=== PATIENT | female | born 1930 | race Caucasian/White ===

== ENCOUNTER → 2016-08-18 | Outpatient (CLI) | payer OTHER ==
[2016-08-18 18:15] LABS: BLOOD UREA NITROGEN 16 mg/dl (7-18); BUN/CREATININE RATIO 20.5 (10-20); CALCIUM 9.1 mg/dl (8.5-10.1); CARBON DIOXIDE 26 mmol/L (21-32); CHLORIDE 102 mmol/L (98-107); GLUCOSE 115 mg/dl (70-99); POTASSIUM 3.9 mmol/L (3.5-5.1); SODIUM 139 mmol/L (136-145)
[2016-08-19 06:09] LABS: ESTIMATED AVERAGE GLUCOSE 154 mg/dl; HA1C FLAG Normal (Normal)
== END | disposition home or self-care (01) ==
LOC: C.LABMFLN 09:09
PROVIDERS: ATTEND Family Medicine
DX: E11.9 Type 2 diabetes mellitus without complications (principal)

== ENCOUNTER → 2017-02-27 | Outpatient (CLI) | payer OTHER, MEDICARE ==
[2017-02-27 13:41] LABS: BASO % 0.7 %; BASO ABS # 0.04 K/uL (0-0.2); COMPLETE YES; EOS % 2.2 %; HEMATOCRIT 42.4 % (37-47); IG% 0.4 %; LYMPH % 31.6 %; LYMPH ABS # 1.71 K/uL (1.2-3.4); MEAN CELL VOLUME 90.6 fL (80-100); MEAN CORPUSCULAR HEMOGLOBIN 29.7 pg (25-34); MEAN CORPUSCULAR HGB CONC 32.8 g/dl (32-36); MEAN PLATELET VOLUME 10.3 fL (7.4-10.4); MONO % 8.3 %; NEUT % 56.8 %; PLATELET COUNT 235 K/uL (130-400); RED BLOOD COUNT 4.68 M/uL (4.2-5.4); WHITE BLOOD COUNT 5.41 K/uL (4.8-10.8)
[2017-02-27 14:08] LABS: ALT/SGPT 30 U/L (12-78); BLOOD UREA NITROGEN 13 mg/dl (7-18); BUN/CREATININE RATIO 16.3 (10-20); CALCIUM 9.2 mg/dl (8.5-10.1); CARBON DIOXIDE 28 mmol/L (21-32); CHLORIDE 105 mmol/L (98-107); CHOLESTEROL 168 mg/dl (0-200); CREATININE 0.79 mg/dl (0.60-1.20); GLUCOSE 161 mg/dl (70-99); POTASSIUM 3.9 mmol/L (3.5-5.1); SODIUM 140 mmol/L (136-145)
[2017-02-27 14:16] LABS: ESTIMATED AVERAGE GLUCOSE 174 mg/dl; HA1C FLAG Normal (Normal)
[2017-02-27 14:34] LABS: ALB/GLOB RATIO 0.9 (0.9-2); ALKALINE PHOSPHATASE 46 U/L (45-117); AST/SGOT 23 U/L (15-37); CHOLESTEROL/HDL RATIO 3.9; HDL CHOLESTEROL 43 mg/dl; LDL CHOLESTEROL CALCULATED 78 mg/dl; TRIGLYCERIDES 236 mg/dl (0-150); VERY LOW DENSITY LIPOPROT CALC 47 mg/dl
== END | disposition home or self-care (01) ==
LOC: C.LABMFLN 07:37
PROVIDERS: ATTEND Family Medicine
DX: E11.9 Type 2 diabetes mellitus without complications (principal); I10 Essential (primary) hypertension; E78.5 Hyperlipidemia, unspecified; E03.9 Hypothyroidism, unspecified

== ENCOUNTER → 2017-06-15 | Outpatient (CLI) | payer OTHER, MEDICARE ==
[2017-06-15 13:33] LABS: BLOOD UREA NITROGEN 15 mg/dl (7-18); BUN/CREATININE RATIO 18.9 (10-20); CALCIUM 9.3 mg/dl (8.5-10.1); CARBON DIOXIDE 27 mmol/L (21-32); CHLORIDE 103 mmol/L (98-107); CREATININE 0.78 mg/dl (0.60-1.20); GLUCOSE 175 mg/dl (70-99); PHOSPHORUS 3.4 mg/dl (2.5-4.9); POTASSIUM 3.8 mmol/L (3.5-5.1); SODIUM 137 mmol/L (136-145)
[2017-06-15 13:52] LABS: ESTIMATED AVERAGE GLUCOSE 151 mg/dl; HA1C FLAG Normal (Normal)
== END | disposition home or self-care (01) ==
LOC: C.LABMFLN 07:48
PROVIDERS: ATTEND Family Medicine
DX: E11.9 Type 2 diabetes mellitus without complications (principal)

== ENCOUNTER → 2017-09-30 | Outpatient (CLI) | payer OTHER, MEDICARE ==
[2017-10-01 07:04] LABS: HEMOGLOBIN A1C 6.9 % (4.5-5.6)
== END | disposition home or self-care (01) ==
LOC: C.LABMFLN 14:01
PROVIDERS: ATTEND Family Medicine
DX: E11.9 Type 2 diabetes mellitus without complications (principal)

== ENCOUNTER 2020-05-15 05:18 | Observation (INO) ==
--- NOTE | 2020-04-12 10:25 | PAT Medication Instructions ---
Medication Instructions Date of Service April 12, 2020 Home Medications Medication Instructions Recorded meclizine 25 mg tablet 25 mg PO .COMPLEX #270 tab 06/13/19 venlafaxine 75 mg tablet 75 mg PO BID #180 tab 09/02/19 metformin 500 mg tablet 500 mg PO BID #180 tab 10/20/19 meclizine 25 mg tablet 25 mg PO multivitamin 1 tab PO QAM venlafaxine 75 mg tablet 75 mg PO BID metformin 500 mg tablet 500 mg PO BID acetaminophen [Tylenol Extra Strength] 500 mg PO BID aspirin 81 mg PO QAM lactobacillus combination no.4 [Probiotic] 3,000 mmu cells PO QPM levothyroxine 50 mcg PO HS lisinopril 20 mg PO QAM metoprolol succinate 25 mg PO QAM multivitamin [Hair,Nails and Skin Vitamin] 1 tab PO BID naproxen sodium [Aleve] 220 mg PO BID pravastatin 40 mg PO HS Continue as directed meclizine 25 mg tablet 25 mg PO ASK your surgeon for instructions naproxen sodium [Aleve] 220 mg PO BID STOP taking 2 weeks before surgery multivitamin [Hair,Nails and Skin Vitamin] 1 tab PO BID DO NOT take the morning of surgery multivitamin 1 tab PO QAM metformin 500 mg tablet 500 mg PO BID lisinopril 20 mg PO QAM Take morning of surgery With a small sip of water, OTHERWISE NOTHING TO EAT OR DRINK AFTER MIDNIGHT: venlafaxine 75 mg tablet 75 mg PO BID acetaminophen [Tylenol Extra Strength] 500 mg PO BID (okay to take up to 4 hours prior to surgery if needed) aspirin 81 mg PO QAM metoprolol succinate 25 mg PO QAM Take evening before surgery venlafaxine 75 mg tablet 75 mg PO BID metformin 500 mg tablet 500 mg PO BID acetaminophen [Tylenol Extra Strength] 500 mg PO BID lactobacillus combination no.4 [Probiotic] 3,000 mmu cells PO QPM levothyroxine 50 mcg PO HS pravastatin 40 mg PO HS Other Notes If you have any questions please call us at [phone] or [phone] or [phone] or [phone]
--- NOTE | 2020-04-16 10:58 | Anesthesiology Consultation ---
Date of Service April 16, 2020 Assessment & Plan (1) Encounter for pre-operative examination: COVID Status: As of 04/16 assessment, patient denies travel to endemic area, known exposure/sick contacts, or symptoms of COVID19. Patient instructed that they and their household members must follow strict social distancing guidelines, wear a mask in public and avoid travel for 14 days prior to surgery. Preoperative COVID19 testing to be completed prior to surgery per surgeon's a rrangements. Patient made aware to self-isolate as much as possible between COVID testing and surgery. Chart Review Chart Review: Acceptable Risk for Surgery (pending surgeon-ordered PCP clearance ([facility])) and Patient seen in Pre Admission Testing Teaching & Discussion Instructed NPO after midnight before surgery, except medications with 15 cc of water. Medication instructions provided according to the PAT guidelines. History Surgery Operation Date: 05/15/20 07:15 Proposed Procedures p Left Anterior Total Hip Arthroplasty - Hill Waller, Height/Weight Height: 5 ft 5 in Weight: 76.5 kg Allergies Allergy/AdvReac Type Severity Reaction Status Date / Time atorvastatin AdvReac Unknown MUSCLE Verified 04/05/20 12:34 ACHES morphine AdvReac Unknown Nausea Verified 04/05/20 12:12 Medications Home Medications Medication Instructions Recorded Confirmed Last Taken meclizine 25 mg tablet 25 mg PO .COMPLEX #270 tab 06/13/19 04/05/20 Unknown multivitamin 1 tab PO QAM 08/10/19 04/05/20 Unknown venlafaxine 75 mg tablet 75 mg PO BID #180 tab 09/02/19 04/05/20 Unknown metformin 500 mg tablet 500 mg PO BID #180 tab 10/20/19 04/05/20 Unknown acetaminophen [Tylenol Extra 500 mg PO BID 04/05/20 04/05/20 Unknown Strength] aspirin 81 mg PO QAM 04/05/20 04/05/20 Unknown lactobacillus combination no.4 3,000 mmu cells PO QPM 04/05/20 04/05/20 Unknown [Probiotic] levothyroxine 50 mcg PO HS 04/05/20 04/05/20 Unknown lisinopril 20 mg PO QAM 04/05/20 04/05/20 Unknown metoprolol succinate 25 mg PO QAM 04/05/20 04/05/20 Unknown multivitamin [Hair,Nails and Skin 1 tab PO BID 04/05/20 04/05/20 Unknown Vitamin] naproxen sodium [Aleve] 220 mg PO BID 04/05/20 04/05/20 Unknown pravastatin 40 mg PO HS 04/05/20 04/05/20 Unknown Past Medical History Medical History Depression Diabetes mellitus GERD without esophagitis Hyperlipidemia Hypertension Hypothyroidism Insomnia Obstructive sleep apnea CPAP Osteoarthritis of left hip Vitamin D deficiency Exercise / Class Metabolic Activity III < 4 Walking/Shop/Light housework (Denies CP or SOB with ambulation, feels she could do 1 FOS but doesnt do them) Past Family History Family History Father Coronary heart disease Myocardial infarction Mother Diabetes Stroke Grandmother Diabetes BROTHER Denies family history of Ovarian cancer Prostate cancer Breast cancer Colorectal cancer Past Surgical History Surgical History H/O colonoscopy History of appendectomy History of cataract surgery right History of repair of rotator cuff BILATERAL History of right knee joint replacement Past Anesthesia History No Hx of Anesthesia Complications and No Family Hx of Anesthesia Complications History of PONV No Hx of PONV and No Hx of Motion Sickness Social History Smoking Status: Former smoker Do You Dip or Chew Tobacco: No Smoking End Date: QUIT 1978 Hx Alcohol Use: Yes Alcohol type: wine alcohol intake frequency: holidays/special occasions only Alcohol Intake Frequency Comment: rare Hx Substance Use: No Review of Systems Pt denies any recent chest pain, shortness of breath, palpitations, cough, fever, URI, or uncontrolled acid reflux. Physical Exam Vital Signs BP: 143/79 P: 71bpm SPO2: 95% RA T: 98.4 F R: 16 ENMT Mouth: + dentures and + edentulous Thyromental Distance: > or= 3.5 Finger Breadths Mallampati Class: II Neck normal visual inspection; neck extension not limited Respiratory normal respiratory effort Auscultation: lungs clear to auscultation bilaterally Cardiovascular Rate/Rhythm: regular rate and regular rhythm Heart Sounds: no murmur Extremities: no edema Testing Laboratory Results 04/16/20 10:46 04/16/20 10:46 PT 10.9 Seconds (9.0-12.0) 04/16/20 10:46 INR 1.0 (0.9-1.1) 04/16/20 10:46 APTT 22.5 Seconds (21.0-31.0) 04/16/20 10:46 Hemoglobin A1c 6.6 % (4.5-5.6) H 04/16/20 10:46 Urine Color Dark Yellow 04/16/20 10:46 Urine Appearance Cloudy (Clear) A 04/16/20 10:46 Urine pH 5.0 (4.5-7.5) 04/16/20 10:46 Ur Specific [place] 1.031 (1.000-1.030) H 04/16/20 10:46 Urine Protein Negative (Negative) 04/16/20 10:46 Urine Glucose (UA) Negative (Negative) 04/16/20 10:46 Urine Ketones Trace (Negative) H 04/16/20 10:46 Urine Nitrite Negative (Negative) 04/16/20 10:46 Ur Leukocyte Esterase Trace (Negative) H 04/16/20 10:46 Urine WBC (Auto) 1-5 /hpf (0-5) 04/16/20 10:46 Urine RBC (Auto) 0-4 /hpf (0-4) 04/16/20 10:46 U Hyaline Cast (Auto) 1-5 /lpf (0-5) 04/16/20 10:46 U Epithel Cells (Auto) >30 /lpf (0-5) H 04/16/20 10:46 Urine Bacteria (Auto) Negative (Negative) 04/16/20 10:46 Blood Type A Positive 04/16/20 10:46 Antibody Screen NEGATIVE 04/16/20 10:46 Electrocardiogram Date: 04/16/20 Findings: + NSR @ (69bpm with 1st degree AV block) Otherwise normal EKG. Compared with EKG from 11/24/96, TWI no longer evident in anterior leads.
[2020-04-16 11:38] LABS: Basophils # (auto) 0.04 K/uL (0-0.2); Basophils % (auto) 0.4 %; Hemoglobin 13.2 g/dL (12.0-16.0); Immature Granulocytes # (auto) 0.02 K/uL (0.00-0.02); Immature Granulocytes % (auto) 0.2 %; Lymphocytes # (auto) 1.94 K/uL (1.2-3.4); Lymphocytes % (auto) 19.9 %; Mean Corpuscular Hemoglobin 30.8 pg (25-34); Mean Corpuscular Volume 93.5 fL (80-100); Mean Platelet Volume 10.2 fL (7.4-10.4); Monocytes # (auto) 0.49 K/uL (0.11-0.59); Neutrophils # (auto) 7.14 K/uL (1.4-6.5); Neutrophils % (auto) 73.5 %; Platelet Count 303 K/uL (130-400); RDW Coefficient of Variation 12.9 % (11.5-14.5); RDW Standard Deviation 43.9 fL (36.4-46.3); Red Blood Count 4.28 M/uL (4.2-5.4); White Blood Count 9.73 K/uL (4.8-10.8)
[2020-04-16 11:47] LABS: BUN Creatinine Ratio 25.6 (10-20); Calcium 10.2 mg/dl (8.5-10.1); Creatinine Clr Calc Pharmacy 51.3 ml/min; Est GFR (African American) 80.6; Est GFR (Non-African American) 69.5
[2020-04-16 11:57] LABS: Partial Thromboplastin Ratio 0.8; Partial Thromboplastin Time 22.5 Seconds (21.0-31.0); Prothrombin Time 10.9 Seconds (9.0-12.0)
[2020-04-16 11:58] LABS: Appearance Urine Cloudy (Clear); Bacteria Urine Automated Negative (Negative); Bilirubin Urine Negative (Negative); Blood Urine Negative (Negative); Color Urine Dark Yellow; Epithelial Cell Urine Auto >30 /lpf (0-5); Glucose Urine UA Negative (Negative); Ketones Urine Trace (Negative); Leukocyte Esterase Urine Trace (Negative); Nitrite Urine Negative (Negative); Protein Urine Negative (Negative); Specific Gravity Urine 1.031 (1.000-1.030); Urobilinogen Urine Negative (Negative)
[2020-04-16 12:50] LABS: Estimated Average Glucose 143 mg/dl; Hemoglobin A1C 6.6 % (4.5-5.6)
[2020-04-16 13:13] LABS: RBC Urine Automated 0-4 /hpf (0-4)
--- NOTE | 2020-04-17 06:05 | Electrocardiogram Report ---
Test Reason : Blood Pressure : / mmHG Vent. Rate : 069 BPM Atrial Rate : 069 BPM P-R Int : 214 ms QRS Dur : 104 ms QT Int : 416 ms P-R-T Axes : 057 038 039 degrees QTc Int : 445 ms Sinus rhythm with 1st degree A-V block Otherwise normal ECG When compared with ECG of 24-NOV-1996 11:24, MT interval has increased Confirmed by Devonte Lin ([id number]) on 04/17/2020 6:05:00 AM Referred By: Hill Waller Confirmed By:Devonte Lin
--- NOTE | 2020-05-13 16:21 | History & Physical Report ---
Date of Service May 15, 2020 Assessment & Plan (1) Degenerative joint disease of left hip: I have indicated the patient for left anterior total hip replacement. The risks, benefits and complications of surgery were explained to the patient which include but not limited to infection, acute blood loss, DVT/PE, injury to nerves, vessels, bone, soft tissue, arthrofibrosis, chronic pain, failure of the prosthesis, hip dislocation, leg length discrepancy, need for additional surgery, cardiac and pulmonary events and . The patient wished to proceed with surgery and informed consent was obtained at this time. We will plan for 81mg ASA BID post-operatively for DVT prophylaxis. Upon discharge the patient will be discharged home with home health services. Appropriate clearances by PCP were obtained. Patient denies symptoms for UTI. History of Present Illness Chief Complaint: Left hip pain/djd Primary Care Provider: Desi Zayas MD The patient is a 89 year old female who presents with complaints of severe left hip pain and DJD. The patient has failed outpatient conservative treatments to this point which included NSAIDs, IA corticosteroid injection, home exercise/walking program. The patient's pain and limited function have progressed to the point where they severely hinder their activities of daily living and they no longer tolerate exercise programs. They are requesting to proceed with total hip replacement surgery. Allergies Allergy/AdvReac Type Severity Reaction Status Date / Time atorvastatin AdvReac Unknown MUSCLE Verified 05/15/20 05:45 ACHES morphine AdvReac Unknown Nausea Verified 05/15/20 05:45 Home Medications Home Medications Medication Instructions Recorded Confirmed Type meclizine 25 mg tablet 25 mg PO .COMPLEX #270 tab 06/13/19 05/15/20 Rx multivitamin 1 tab PO QAM 08/10/19 05/15/20 History venlafaxine 75 mg tablet 75 mg PO BID #180 tab 09/02/19 05/15/20 Rx metformin 500 mg tablet 500 mg PO BID #180 tab 10/20/19 05/15/20 Rx acetaminophen [Tylenol Extra 500 mg PO BID 04/05/20 05/15/20 History Strength] aspirin 81 mg PO QAM 04/05/20 05/15/20 History lactobacillus combination no.4 3,000 mmu cells PO QPM 04/05/20 05/15/20 History [Probiotic] levothyroxine 50 mcg PO HS 04/05/20 05/15/20 History lisinopril 20 mg PO QAM 04/05/20 05/15/20 History metoprolol succinate 25 mg PO QAM 04/05/20 05/15/20 History multivitamin [Hair,Nails and Skin 1 tab PO BID 04/05/20 05/15/20 History Vitamin] naproxen sodium [Aleve] 220 mg PO BID 04/05/20 05/15/20 History pravastatin 40 mg PO HS 04/05/20 05/15/20 History Past Med/Surg History Medical History Depression Diabetes mellitus GERD without esophagitis Hyperlipidemia Hypertension Hypothyroidism Insomnia Obstructive sleep apnea CPAP Osteoarthritis of left hip Vitamin D deficiency Surgical History H/O colonoscopy History of appendectomy History of cataract surgery right History of repair of rotator cuff BILATERAL History of right knee joint replacement Family History Father Coronary heart disease Myocardial infarction Mother Diabetes Stroke Grandmother Diabetes BROTHER Denies family history of Ovarian cancer Prostate cancer Breast cancer Colorectal cancer Social History Smoking Status: Former smoker Tobacco Type: Cigarettes Age Started Using Tobacco: 18; Age Quit Using Tobacco: 49; packs per day: 1; Smoking End Date: QUIT 1978; Second Hand Exposure: Yes; Do You Dip or Chew Tobacco: No; Hx Alcohol Use: Yes Alcohol type: wine Alcohol Intake Frequency: Monthly or Less Hx Substance Use: No Preferred Language: Urdu Communication Ability: Effective Visual Impairment: No Limitations Hearing Ability: Normal Negative Cutter Required: No Beliefs That Will Affect Care: None marital status: Current Living Situation: Spouse Current Living Situation Comment: LIVES IN [facility] current occupational status: retired current occupation: [employer] Other Information That Helps Us Care for You: No Feels Safe at Home: Yes Safety Concerns: Feels Safe At This Time caffeine: Yes (coffee) Dental Care, Regularly: No Physical Activity Frequency: 3-4 Times per Week Physical Activity Frequency Comment: water aerobics Seatbelt Use: always Sunscreen Use: No ("not out much") Do you think of yourself as: straight/heterosexual Assistive Devices: Cane, Denture - Upper, Denture - Lower and Glasses Assistive Devices Comment: CANE PRN Review of Systems Review of Systems: All systems reviewed & are unremarkable except as noted in HPI & below Constitutional: as per Subjective / HPI Physical Exam Physical Exam: LLE NVSI +EHL/FHL/TA/GS SILT grossly, +2 DP pulse, compartments soft NT, limited painful ROM of the hip, antalgic gait. Constitutional: WD/WN, vitals as above Eyes: PERRL, conjunctivae normal, anicteric sclerae ENMT: external ear and nose normal, oropharynx normal Neck: trachea midline, no thyromegaly Respiratory: normal respiratory effort, lungs clear to auscultation Cardiovascular: RRR, no murmur, no edema Gastrointestinal (Abdomen): normal bowel sounds, soft, nontender, no hepatos plenomegaly Musculoskeletal: no cyanosis or clubbing, extremities motor strength 5/5 Skin: no rashes, warm and dry Neurologic: patellar DTR's 2+ bilat, sensation intact Psychiatric: A+Ox3, euthymic affect Lymphatic: no cervical or axillary lymphadenopathy Results & Data Results & Data ([facility]) Diagnostic Findings Multiple views of the hip demonstrates severe DJD with complete loss of the joint space. +osteophytes, +sclerosis, +subchondral cysts. Pre Admission Testing Addendum Laboratory Results 04/16/20 10:46 04/16/20 10:46 PT 10.9 Seconds (9.0-12.0) 04/16/20 10:46 INR 1.0 (0.9-1.1) 04/16/20 10:46 APTT 22.5 Seconds (21.0-31.0) 04/16/20 10:46 Hemoglobin A1c 6.6 % (4.5-5.6) H 04/16/20 10:46 Urine Color Dark Yellow 04/16/20 10:46 Urine Appearance Cloudy (Clear) A 04/16/20 10:46 Urine pH 5.0 (4.5-7.5) 04/16/20 10:46 Ur Specific [place] 1.031 (1.000-1.030) H 04/16/20 10:46 Urine Protein Negative (Negative) 04/16/20 10:46 Urine Glucose (UA) Negative (Negative) 04/16/20 10:46 Urine Ketones Trace (Negative) H 04/16/20 10:46 Urine Nitrite Negative (Negative) 04/16/20 10:46 Ur Leukocyte Esterase Trace (Negative) H 04/16/20 10:46 Urine WBC (Auto) 1-5 /hpf (0-5) 04/16/20 10:46 Urine RBC (Auto) 0-4 /hpf (0-4) 04/16/20 10:46 U Hyaline Cast (Auto) 1-5 /lpf (0-5) 04/16/20 10:46 U Epithel Cells (Auto) >30 /lpf (0-5) H 04/16/20 10:46 Urine Bacteria (Auto) Negative (Negative) 04/16/20 10:46 Blood Type A Positive 04/16/20 10:46 Antibody Screen NEGATIVE 04/16/20 10:46
[2020-05-15] MEDS ORDERED: dexAMETHasone 4 MG TAB PO SCH (06:00)
[2020-05-15] MEDS ORDERED: ceFAZolin 1000MG 1,000 MG/7.5 ML SYR IV SCH (06:00)
[2020-05-15] MEDS ORDERED: GABAPENTIN 300 MG CAP PO SCH (06:00)
[2020-05-15] MEDS ORDERED: FAMOTIDINE 20 MG TAB PO SCH (06:00)
[2020-05-15] MEDS ORDERED: ROPIVACAINE 0.5% HCL/PF 150 MG, BUPIVACAINE 0.5% MPF 30 ML, EPINEPHrine 30MG/30ML (OR U... INSTIL SCH (06:00)
[2020-05-15] MEDS ORDERED: ACETAMINOPHEN 500 MG TAB PO SCH (06:00)
[2020-05-15] MEDS ORDERED: TRANEXAMIC ACID 1,000 MG **IV Intra-op IV SCH (06:00)
[2020-05-15] MEDS ORDERED: TRANEXAMIC ACID 1,000 MG **IV Pre-op IV SCH (06:00)
[2020-05-15] MEDS ORDERED: LR 500ML BOLUS, THEN 15ML/HR IV SCH (06:00)
[2020-05-15] MEDS ORDERED: CeleBREX 200 MG CAP PO SCH (06:00)
[2020-05-15] MEDS ORDERED: METOCLOPRAMIDE HCL 10 MG TABLET PO SCH (06:00)
[2020-05-15] MEDS ORDERED: BUPIVACAINE 0.5 % 5 MG/1 ML PF 10ML VIAL ONE (06:25)
[2020-05-15] MEDS ORDERED: PROPOFOL IV EMULSION 10 MG/ML 20 ML VIAL IV ONE ×2 (06:35)
[2020-05-15] MEDS ORDERED: ONDANSETRON INJ 2 MG/ML 2 ML VIAL ONE (06:36)
[2020-05-15] MEDS ORDERED: LIDOCAINE HCL 2% 2 ML VIAL/AMP(20MG/ML) INFIL ONE (06:36)
[2020-05-15] MEDS ORDERED: MIDAZOLAM HCL 1 MG/ML 2ML VIAL ONE (06:36)
[2020-05-15] MEDS ORDERED: fentaNYL citrate 100 MCG/2 ML VIAL ONE (06:37)
--- NOTE | 2020-05-15 06:43 | History & Physical Bridge Note ---
Date of Service May 15, 2020 History & Physical Bridge Note I have examined the patient, reviewed the History & Physical and in the interval since the performance of the History & Physical I have noted the following changes of clinical significance: no changes noted
[2020-05-15] MEDS ORDERED: ONDANSETRON INJ 2 MG/ML 2 ML VIAL IV PRN ×2 (06:52→10:54)
[2020-05-15] MEDS ORDERED: fentaNYL citrate 100 MCG/2 ML VIAL IV PRN (06:52)
[2020-05-15] MEDS ORDERED: ATROPINE SULFATE 0.1 MG/ML 10ML SYR IV PRN (06:52)
[2020-05-15] MEDS ORDERED: LABETALOL HCL IV 5 MG/ML 20ML IV PRN (06:52)
[2020-05-15] MEDS ORDERED: MEPERIDINE HCL 25 MG/ML CARP/VIAL IV PRN (06:52)
[2020-05-15] MEDS ORDERED: PHENYLEPHRINE 100MCG/ML 5ML SYR IV PRN (06:52)
[2020-05-15] MEDS ORDERED: ePHEDrine sulfate 50 MG/ML AMP IV PRN (06:52)
[2020-05-15] MEDS ORDERED: ORTHO JOINT ANESTHETIC ONE (07:04)
[2020-05-15] MEDS ORDERED: BACITRACIN INJ 50,000 UNIT VIAL ONE (07:04)
--- NOTE | 2020-05-15 08:58 | Post Operative Brief Note ---
Immediate Post Op Note v1 Date of Surgery May 15, 2020 Pre & Post Diagnosis Operation Date: 05/15/20 07:15 Pre-Op Diagnosis: Unilateral Primary Osteoarthritis Hip Left Post-Op Diagnosis: Unilateral Primary Osteoarthritis Hip Left I identified the patient and participated in the time-out.: Yes Procedure Operation Date: 05/15/20 07:15 Actual Procedures p Left Anterior Total Hip Arthroplasty - Hill Waller DO Surgeon Hill Waller DO Research Soil Scientist Jose David Richey Estimated Blood Loss 150 Findings Consistent with Post-Op Diagnosis Fluids 1200 cc LR Specimens femoral head Anesthesia Type Spinal MAC Complications none Disposition Disposition: Recovery Room Overlapping Procedure I was present for: the critical portions of procedure. I was immediately available: during the entire case. Back up surgeon: was not required during procedure.
--- NOTE | 2020-05-15 09:02 | Operative Report ---
Post Operative Report Pre & Post Diagnosis Operation Date: 05/15/20 07:15 Pre-Op Diagnosis: Unilateral Primary Osteoarthritis Hip Left Post-Op Diagnosis: Unilateral Primary Osteoarthritis Hip Left I identified the patient and participated in the time-out.: Yes Procedure Operation Date: 05/15/20 07:15 Actual Procedures p Left Anterior Total Hip Arthroplasty - Hill Waller DO Surgeon Hill Waller DO Systems Programmer Analyst Jose David Richey Estimated Blood Loss 150 Findings Consistent with Post-Op Diagnosis Fluids 1200 cc LR Specimens femoral head Anesthesia Type Spinal MAC Complications none Disposition Disposition: Recovery Room Indications The patient is a 89-year-old female who presents with severe progressive left hip DJD who has failed outpatient conservative treatments. I indicated the patient for a anterior total hip replacement and the risks and benefits were explained in detail which include but not limited to infection, bleeding, blood clot, damage to surrounding bone, nerves, vessels, soft tissue, hip dislocation, failure of the prosthesis, leg length discrepancy, need for additional surgery and . The patient agreed to proceed with replacement of the hip and informed consent was obtained. Appropriate clearances were obtained. Description of Procedure COMPONENTS USED: [employer] hip system: Acetabulum size 50, femur size 6 high offset, femoral head 32+0, liner 50x32, acetabular screw 25 mm x 1. DESCRIPTION OF PROCEDURE: Following satisfactory spinal anesthesia, the patient was placed supine on the OR table. The right leg was placed in the well leg lerner and the left leg in the traction device. The left leg was prepared with ChloraPrep and draped sterilely. A surgical timeout was performed, patient identified and site jesika verified. Appropriate antibiotics were given. A standard anterior approach in the interval between the sartorius and tensor muscles was performed. Dissection was carried down through subcutaneous tissues. Electrocautery was utilized for hemostasis. Circumflex femoral vessels were identified, tied and ligated. The anterior capsular fat pad was removed and the capsulotomy was performed revealing the arthritic femoral neck and head. A femoral neck cut was made with reciprocating saw and the bone fragments removed. The acetabular self-retraining retractor was placed. Acetabular reaming was completed under fluoroscopic guidance, a 50 shell was impacted into an anatomic position and secured with a dome screw. Local anesthetic was placed and following irrigation, the polyethylene liner was placed. The femur was placed into position of external rotation, extension and adduction. Femoral canal was prepared up to the size 6 high offset. Trial reduction with a +0 neck length head showed good soft tissue tension, leg lengths restored, and good fit and fill of the proximal canal using fluoroscopic landmarks. The hip was dislocated. The trial component was removed. The final implant was placed. The hip was irrigated with sterile saline solution and reduced. A Betadine soak was performed. After 3 minutes, the hip was once more irrigated with copious sterile saline solution with bacitracin. Saavnnah-incisional soft tissue was injected utilizing [place] [facility]ix which includes a combination of Ropivicaine 0.5% 150mg, Bupivicaine 0.5%/Epinephrine 1:200,000 30ml, Toradol 30mg, Dexamethasone 4mg, Ketamine 10mg, Clonidine 100mcg and NSS 30ml solution. The capsule was then closed with 1-0 Vicryl interrupted figure of eight sutures. The fascia was closed with a running suture of #1 Vicryl, the subcutaneous tissues with 2-0 Vicryl and the skin was closed with christy. A aquiles incisional VAC was then applied. The patient tolerated the procedure well and was transported to PACU in stable condition. Due to the complex nature of the procedure, the entire surgery was performed with the operational assistance of Jose David Richey PA-C. The conservation assistant, under direct supervision, was involved in the actual performance of all aspects of the surgical procedure including patient positioning, hemostasis, tissue retr action, instrument management and wound closure. I attest to the content of the Intraoperative Record and any orders documented therein. Any exceptions are noted below.
--- NOTE | 2020-05-15 09:24 | Fluoroscopy Report ---
FL hip LT 1V CLINICAL HISTORY: LT ANTERIOR TOTAL COMPARISON STUDY: None FLUOROSCOPY TIME: 35 seconds. FLUOROSCOPIC IMAGES: 2 FINDINGS: Fluoroscopy was provided during total left hip arthroplasty. There is an acetabular screw. Hardware is intact. No fracture is identified by fluoroscopy. There are no unexpected radiopaque fore ign bodies. IMPRESSION: Fluoroscopy provided during total left hip arthroplasty. ACT 112: Negative or not required by law. Electronically signed by: Quang Whitney M.D. 05/15/2020 9:23 AM
--- NOTE | 2020-05-15 09:53 | XRay Report ---
AP PELVIS, CROSSTABLE LATERAL LEFT HIP History: Left total hip arthroplasty. Degenerative arthritis. Postop. FINDINGS: The patient is status post a left total hip arthroplasty. The hardware is intact. No fractu re or dislocation. Skin christy are in place. IMPRESSION: Left total hip arthroplasty. No evidence for hardware complication. ACT 112: Negative or not required by law. Electronically signed by: Duane Fish M.D. 05/15/2020 9:51 AM
--- NOTE | 2020-05-15 10:02 | Anesthesiology Progress Note ---
Date of Service May 15, 2020 Anesthesia Post Procedure Vital Signs Vital Signs: Temp Pulse Pulse Resp BP Pulse Ox 05/15/20 09:50 70 20 129/77 99 05/15/20 09:40 66 16 138/65 98 05/15/20 09:30 65 14 145/60 H 93 05/15/20 09:20 66 16 139/61 98 05/15/20 09:14 36.7 C 69 15 136/66 97 05/15/20 06:40 69 20 166/79 H 98 05/15/20 05:50 36.7 C 85 20 182/76 H 96 Transfer of Care Handoff Completed per policy Notes Mental Status: alert / awake / arousable Patient Amnestic to Procedure: Yes Nausea / Vomiting: adequately controlled Pain: adequately controlled Airway Patency, RR, SpO2: stable & adequate BP & HR: stable & adequate Hydration State: stable & adequate Neuraxial Anesthesia: was administered and sensory block is resolving Anesthetic Complications: no major complications apparent and Pt Satisfied with anesthetic care
[2020-05-15] MEDS ORDERED: MAGNESIUM HYDROXIDE SUSP 30 ML UDC PO PRN (10:54)
[2020-05-15] MEDS ORDERED: oxyCODONE HCL IR 5 MG TAB (IMMEDIATE RELEASE) PO PRN (10:54)
[2020-05-15] MEDS ORDERED: METOCLOPRAMIDE HCL INJ 5 MG/ML 2 ML VIAL IV PRN (10:54)
[2020-05-15] MEDS ORDERED: HYDROmorphone INJ 0.5 MG/0.5 ML SYR IV PRN (10:54)
[2020-05-15] MEDS ORDERED: NALOXONE HCL 0.4 MG/1 ML VIAL/CARP IV PRN (10:54)
[2020-05-15] MEDS ORDERED: bisacodyL 10 MG SUPP PR PRN (10:54)
[2020-05-15] MEDS ORDERED: MECLIZINE HCL 25 MG TAB PO PRN (10:58)
[2020-05-15] MEDS ORDERED: PHARMACY GLYCEMIC MGMT CONSULT PRN (11:03)
--- NOTE | 2020-05-15 11:28 | Pharmacy Report ---
Glycemic Control Consultation - Date of Service May 15, 2020 - Scope Scope: Glycemic Pharmacist consulted for glycemic control and to write orders per [facility] inpatient glycemic control protocol. - Objective Weight: 75.4 kg Accuchecks BSG (last 24hrs): 05/15/20 05/15/20 05:38 09:20 POC Glucose 138 H 146 H HbA1c: Hemoglobin A1c 6.6 % (4.5-5.6) H 04/16/20 10:46 - Recent Pertinent Medications Outpatient Anti-diabetic Regimen: * Metformin 500 mg PO BIDM * A1c = 6.6% (04/16/2020) Risk Factors for Insulin Resistance: * Steroids: * Ortho Joint Mix * Dexamethasone 8 mg PO x 1 * Recent Surgery: * POD #0 * Diet: * T2DM - Assessment & Plan Assessment & Plan: ASSESSMENT: * 89 yo F admitted s/p right anterior total hip arthroplasty. Pharmacy is consulted for inpatient glycemic management. Patient's HbA1c demonstrates good outpatient control of T2DM on Metformin monotherapy. * Preoperative BSG was 138 mg/dL this AM. She did receive preoperative steroids x 1 dose. I do not see any further steroid orders. She is ordered a diet to start with lunch. * Her postoperative BSG was 146 mg/dL. * Will give a one time dose of 15 units NPH. This is ~ 0.2 units/kg. * Will start Novolog based on a weight/stress of 3 to control for steroid-i nduced post-prandial hyperglycemia. This is aggressive and will likely need decreased as steroids start to wear off. * Plan to start Metformin this evening depending on BSG trend throughout the day. PLAN FOR INPATIENT GLYCEMIC CONTROL: * Metformin 500 mg PO BIDM (starting this evening) * Basal insulin * NPH 15 units SC x 1 * Bolus insulin * NovoLog per scale ACHS or Q6hrs while NPO * Goal Range: Low 110 mg/dL - High 140 mg/dL * Correction Factor: 20 mg/dL/unit * Nutritional / Prandial insulin per carb ratio of 1 unit per 7 grams CHO consumed * Please note that the plan above was derived based on current level of insulin resistance and hospital stress. These recommendations are appropriate for inpatient admission only. Plan of care upon discharge will need to be reassessed to avoid potential outpatient hypo/hyperglycemia. Thank you.
[2020-05-15] MEDS ORDERED: NovoLIN-N (NPH) PER UNIT CHARGE SQ ONE (11:30)
[2020-05-15] MEDS ORDERED: GLUCAGON FOR INJ 1 MG VIAL IM PRN (11:30)
[2020-05-15] MEDS ORDERED: GLUCOSE 10 TABS/TUBE PO PRN (11:30)
[2020-05-15] MEDS ORDERED: CARBOHYDRATES FOR HYPOGLYCEMIA PO PRN (11:30)
[2020-05-15] MEDS ORDERED: GLUCOSE 40% GEL 15 GM TUBE PO PRN (11:30)
[2020-05-15] MEDS ORDERED: DEXTROSE 50% 50 ML SYRINGE IV PRN (11:30)
[2020-05-15] MEDS ORDERED: ePHEDrine sulfate 50 MG/ML SYR ONE (12:19)
[2020-05-15] MEDS: INSULIN ASPART 100 UNITS/ML 3 ML PEN SC SCH ×3 (12:47→21:46)
[2020-05-15] MEDS: KETOROLAC TROMETHAMINE 15 MG/ML VIAL IV SCH ×3 (12:48→23:38)
[2020-05-15] MEDS: SODIUM CHLORIDE 0.9% 1000ML 1,000 ML IV SCH ×2 (14:02→22:02)
[2020-05-15] MEDS: ACETAMINOPHEN 500 MG TAB PO SCH ×2 (14:03→21:46)
[2020-05-15] MEDS: ceFAZolin 2000MG 2,000 MG/15 ML SYR IV SCH ×2 (16:14→23:38)
--- NOTE | 2020-05-15 16:51 | Orthopedic Progress Note ---
Date of Service May 15, 2020 Assessment & Plan (1) Degenerative joint disease of left hip: Status post left anterior total hip arthroplasty -Ancef x24 -DVT prophylaxis: SCDs, teds, 81 mg ASA twice daily -Weight-bear as tolerated left lower extremity -PT/OT -Postoperative x-ray demonstrates a well aligned well fixed prosthesis without evidence of fracture or dislocation. -A.m. lab -DC planning Admission and Anticipated Discharge Date Admission Date: May 15, 2020 Subjective Post Operative Progress Note Patient seen sitting up in bed, comfortable, denies complaints, pain well controlled, no acute issues. Review of Systems Review of Systems: All systems reviewed & are unremarkable except as noted in HPI & below Constitutional: as per Subjective / HPI Physical Exam Physical Exam: LLE NVSI +EHL/FHL/TA/GS SILT grossly, +2 DP pulse, compartments soft NT, dressing cdi. Results & Data ([facility]) Vital Signs (Past 12 Hours) Vital Signs Temp Pulse Pulse Resp BP Pulse Ox 05/15/20 15:11 36.7 C 76 15 107/57 L 96 05/15/20 13:30 75 16 120/66 94 05/15/20 11:35 76 16 129/70 96 05/15/20 11:00 36.4 C L 70 16 151/63 H 100 05/15/20 10:30 36.7 C 73 16 121/65 98 05/15/20 10:20 37.1 C 70 18 143/63 H 97 05/15/20 10:10 69 18 141/61 H 99 05/15/20 10:00 36.5 C 71 20 146/66 H 99 05/15/20 09:50 70 20 129/77 99 05/15/20 09:40 66 16 138/65 98 05/15/20 09:30 65 14 145/60 H 93 05/15/20 09:20 66 16 139/61 98 05/15/20 09:14 36.7 C 69 15 136/66 97 05/15/20 06:40 69 20 166/79 H 98 05/15/20 05:50 36.7 C 85 20 182/76 H 96
[2020-05-15] MEDS: metFORMIN HCL 500 MG TAB PO SCH (17:27)
[2020-05-15] MEDS: DOCUSATE SODIUM 100 MG CAP PO SCH (20:23)
[2020-05-15] MEDS: PRAVASTATIN SOD 40 MG TAB PO SCH (20:23)
[2020-05-15] MEDS: VENLAFAXINE HCL 37.5 MG TAB PO SCH (20:23)
[2020-05-15] MEDS: SENNA 8.6 MG TAB PO SCH (20:23)
[2020-05-15] MEDS ORDERED: Nursing to Pharmacy Communication SCH (20:45)
[2020-05-15] MEDS ORDERED: LEVOTHYROXINE SODIUM 50 MCG TABLET PO SCH (21:00)
[2020-05-16] MEDS: LEVOTHYROXINE SODIUM 50 MCG TABLET PO SCH (06:13)
[2020-05-16] MEDS: ACETAMINOPHEN 500 MG TAB PO SCH ×3 (06:13→21:19)
[2020-05-16] MEDS: KETOROLAC TROMETHAMINE 15 MG/ML VIAL IV SCH (06:15)
[2020-05-16 06:23] LABS: Basophils # (auto) 0.01 K/uL (0-0.2); Basophils % (auto) 0.1 %; Hematocrit (blood only) 31.7 % (37-47); Hemoglobin 9.9 g/dL (12.0-16.0); Immature Granulocytes # (auto) 0.05 K/uL (0.00-0.02); Immature Granulocytes % (auto) 0.4 %; Lymphocytes # (auto) 1.55 K/uL (1.2-3.4); Lymphocytes % (auto) 12.6 %; Mean Corpuscular Hemoglobin 29.6 pg (25-34); Mean Corpuscular Hgb Conc 31.2 g/dL (32-36); Mean Corpuscular Volume 94.9 fL (80-100); Mean Platelet Volume 9.7 fL (7.4-10.4); Monocytes # (auto) 1.03 K/uL (0.11-0.59); Monocytes % (auto) 8.4 %; Neutrophils # (auto) 9.67 K/uL (1.4-6.5); Neutrophils % (auto) 78.5 %; Platelet Count 338 K/uL (130-400); RDW Coefficient of Variation 12.6 % (11.5-14.5); RDW Standard Deviation 43.7 fL (36.4-46.3); Red Blood Count 3.34 M/uL (4.2-5.4); White Blood Count 12.31 K/uL (4.8-10.8)
[2020-05-16 06:47] LABS: BUN Creatinine Ratio 25.4 (10-20); Calcium 8.8 mg/dl (8.5-10.1); Creatinine Clr Calc Pharmacy 42.1 ml/min; Est GFR (African American) 65.7; Est GFR (Non-African American) 56.7; Potassium 3.9 mmol/L (3.5-5.1)
[2020-05-16] MEDS: metFORMIN HCL 500 MG TAB PO SCH ×2 (08:33→17:35)
[2020-05-16] MEDS: VENLAFAXINE HCL 37.5 MG TAB PO SCH ×2 (08:34→20:16)
[2020-05-16] MEDS: MULTIVITAMIN TAB PO SCH (08:35)
[2020-05-16] MEDS: ASPIRIN 81 MG ECTAB PO SCH ×2 (08:35→20:16)
[2020-05-16] MEDS: DOCUSATE SODIUM 100 MG CAP PO SCH ×2 (08:35→20:17)
[2020-05-16] MEDS: METOPROLOL SUCC 25MG EXT REL TAB PO SCH (08:35)
[2020-05-16] MEDS: lisinopril 20 MG TAB PO SCH (08:36)
[2020-05-16] MEDS: INSULIN ASPART 100 UNITS/ML 3 ML PEN SC SCH ×4 (08:37→21:48)
--- NOTE | 2020-05-16 09:56 | Pharmacy Report ---
Pharmacy Glycemic Sign Off Nt - Date of Service May 16, 2020 - Assessment & Plan ASSESSMENT: * Pharmacy was consulted by Dr. Waller on 05/15/2020 for glycemic control and to write orders per [facility] inpatient glycemic control protocol. * Major changes made by pharmacy to antidiabetic regimen include: * One time dose of NPH to cover intraoperative steroids * Patient has been receiving/requiring 29 units of insulin per day for adequate glycemic control * BSGs ranging 107 - 173 mg/dl * Regimen has only required minor adjustments over the past 48hrs to achieve this level of control * Do not anticipate further changes in patient status that would quickly deteriorate glycemic control (i.e. patient to be NPO for upcoming procedure, steroids tapering, starting tube feedings, etc). * Please see recommendations for outpatient antidiabetic regimen below. PLAN FOR INPATIENT GLYCEMIC CONTROL: * Continue Metformin 500 mg PO BIDM * Continue NovoLog per scale ACHS/Q6hrs while NPO * Goal range = 110 - 140 mg/dl * CF = 30 mg/dl/unit * CR = 1 unit for ever 10 g CHO consumed * Pharmacy is signing off of glycemic consult and will no longer be making adjustments to inpatient regimen. Please feel free to re-consult if needed. Thank you. DISCHARGE RECOMMENDATIONS: * A1c 6.6% on 04/16/2020. Continue home regimen upon discharge.
--- NOTE | 2020-05-16 10:37 | Orthopedic Progress Note ---
Date of Service May 16, 2020 Assessment & Plan (1) Degenerative joint disease of left hip: Status post left anterior total hip arthroplasty POD#1 -Ancef x24 -DVT prophylaxis: SCDs, teds, 81 mg ASA twice daily -Weight-bear as tolerated left lower extremity -PT/OT -Postoperative x-ray demonstrates a well aligned well fixed prosthesis without evidence of fracture or dislocation. -A.m. lab - as above, hgb 9.9 -DC planning - home with Admission and Anticipated Discharge Date Admission Date: May 15, 2020 Subjective Post Operative Progress Note Patient seen this morning sitting up in bed, comfortable, denies complaints, pain well controlled, no acute issues. Denies F/C/N/V/SOB/CP. Review of Systems Review of Systems: All systems reviewed & are unremarkable except as noted in HPI & below Constitutional: as per Subjective / HPI Physical Exam Physical Exam: LLE NVSI +EHL/FHL/TA/GS SILT grossly, +2 DP pulse, compartments soft NT, dressing cdi. Constitutional: WD/WN, vitals as above Results & Data ([facility]) Vital Signs (Past 12 Hours) Vital Signs Temp Pulse Resp BP BP Pulse Ox 05/16/20 08:32 76 142/70 H 05/16/20 07:36 36.8 C 79 16 123/58 L 94 05/16/20 03:15 36.7 C 86 16 112/54 L 97 05/15/20 23:34 36.7 C 94 H 16 101/55 L 98 Laboratory Results 05/16/20 05/16/20 05/16/20 Range/Units 08:13 05:45 05:45 WBC 12.31 H (4.8-10.8) K/uL RBC 3.34 L (4.2-5.4) M/uL Hgb 9.9 L (12.0-16.0) g/dL Hct 31.7 L (37-47) % MCV 94.9 (80-100) fL MCH 29.6 (25-34) pg MCHC 31.2 L (32-36) g/dL RDW Std Deviation 43.7 (36.4-46.3) fL RDW Coeff of Bulmaro 12.6 (11.5-14.5) % Plt Count 338 (130-400) K/uL MPV 9.7 (7.4-10.4) fL Immature Gran % (Auto) 0.4 % Neut % (Auto) 78.5 % Lymph % (Auto) 12.6 % [place] % (Auto) 8.4 % Eos % (Auto) 0.0 % Baso % (Auto) 0.1 % Neut # (Auto) 9.67 H (1.4-6.5) K/uL Lymph # (Auto) 1.55 (1.2-3.4) K/uL [place] # (Auto) 1.03 H (0.11-0.59) K/uL Eos # (Auto) 0.00 (0-0.5) K/uL Baso # (Auto) 0.01 (0-0.2) K/uL Immature Gran # (Auto) 0.05 H (0.00-0.02) K/uL Sodium 141 (136-145) mmol/L Potassium 3.9 (3.5-5.1) mmol/L Chloride 107 (98-107) mmol/L Carbon Dioxide 30 (21-32) mmol/L Anion Gap 4.0 (3-11) BUN 23 H (7-18) mg/dl Creatinine 0.90 (0.6-1.2) mg/dl Est Cr Clr Drug Dosing 42.1 ml/min Est GFR ( Amer) 65.7 Est GFR (Non-Af Amer) 56.7 BUN/Creatinine Ratio 25.4 H (10-20) Glucose 108 H (70-99) mg/dl POC Glucose 107 H (70-99) mg/dl Calcium 8.8 (8.5-10.1) mg/dl 05/15/20 05/15/20 05/15/20 Range/Units 20:56 17:19 12:02 WBC (4.8-10.8) K/uL RBC (4.2-5.4) M/uL Hgb (12.0-16.0) g/dL Hct (37-47) % MCV (80-100) fL MCH (25-34) pg MCHC (32-36) g/dL RDW Std Deviation (36.4-46.3) fL RDW Coeff of Bulmaro (11.5-14.5) % Plt Count (130-400) K/uL MPV (7.4-10.4) fL Immature Gran % (Auto) % Neut % (Auto) % Lymph % (Auto) % [place] % (Auto) % Eos % (Auto) % Baso % (Auto) % Neut # (Auto) (1.4-6.5) K/uL Lymph # (Auto) (1.2-3.4) K/uL [place] # (Auto) (0.11-0.59) K/uL Eos # (Auto) (0-0.5) K/uL Baso # (Auto) (0-0.2) K/uL Immature Gran # (Auto) (0.00-0.02) K/uL Sodium (136-145) mmol/L Potassium (3.5-5.1) mmol/L Chloride (98-107) mmol/L Carbon Dioxide (21-32) mmol/L Anion Gap (3-11) BUN (7-18) mg/dl Creatinine (0.6-1.2) mg/dl Est Cr Clr Drug Dosing ml/min Est GFR ( Amer) Est GFR (Non-Af Amer) BUN/Creatinine Ratio (10-20) Glucose (70-99) mg/dl POC Glucose 131 H 172 H 173 H (70-99) mg/dl Calcium (8.5-10.1) mg/dl
[2020-05-16] MEDS: PRAVASTATIN SOD 40 MG TAB PO SCH (20:16)
[2020-05-16] MEDS: CeleBREX 200 MG CAP PO SCH (20:16)
[2020-05-16] MEDS: SENNA 8.6 MG TAB PO SCH (20:17)
[2020-05-17] MEDS: ACETAMINOPHEN 500 MG TAB PO SCH (06:00)
[2020-05-17] MEDS: LEVOTHYROXINE SODIUM 50 MCG TABLET PO SCH (06:00)
[2020-05-17 06:26] LABS: Hematocrit (blood only) 33.6 % (37-47); Hemoglobin 10.9 g/dL (12.0-16.0); Mean Corpuscular Hemoglobin 30.4 pg (25-34); Mean Corpuscular Hgb Conc 32.4 g/dL (32-36); Mean Corpuscular Volume 93.9 fL (80-100); Mean Platelet Volume 9.5 fL (7.4-10.4); Platelet Count 322 K/uL (130-400); RDW Coefficient of Variation 12.6 % (11.5-14.5); RDW Standard Deviation 43.1 fL (36.4-46.3); Red Blood Count 3.58 M/uL (4.2-5.4); White Blood Count 11.49 K/uL (4.8-10.8)
[2020-05-17 06:54] LABS: ALC (manual) 2.18 K/uL (1.2-3.4); ANC (manual) 8.11 K/uL (1.4-6.5); Basophils % (manual) 0.9 %; Eosinophils % (manual) 0.9 %; Lymphocytes # (manual) 2.18 K/uL (1.2-3.4); Monocytes # (manual) 0.99 K/uL (0.11-0.59); Monocytes % (manual) 8.6 %; Neutrophils # (manual) 8.11 K/uL (1.4-6.5); Neutrophils % (manual) 70.6 %
[2020-05-17 07:00] LABS: BUN Creatinine Ratio 27.4 (10-20); Calcium 8.8 mg/dl (8.5-10.1); Creatinine Clr Calc Pharmacy 50.6 ml/min; Est GFR (African American) 81.9; Est GFR (Non-African American) 70.7; Potassium 4.2 mmol/L (3.5-5.1)
[2020-05-17] MEDS: INSULIN ASPART 100 UNITS/ML 3 ML PEN SC SCH (08:52)
[2020-05-17] MEDS: lisinopril 20 MG TAB PO SCH (08:54)
[2020-05-17] MEDS: metFORMIN HCL 500 MG TAB PO SCH (08:54)
[2020-05-17] MEDS: MULTIVITAMIN TAB PO SCH (08:55)
[2020-05-17] MEDS: METOPROLOL SUCC 25MG EXT REL TAB PO SCH (08:55)
[2020-05-17] MEDS: VENLAFAXINE HCL 37.5 MG TAB PO SCH (08:56)
[2020-05-17] MEDS: DOCUSATE SODIUM 100 MG CAP PO SCH (08:56)
[2020-05-17] MEDS: ASPIRIN 81 MG ECTAB PO SCH (08:56)
[2020-05-17] MEDS: CeleBREX 200 MG CAP PO SCH (08:57)
--- NOTE | 2020-05-17 09:31 | Orthopedic Progress Note ---
Date of Service May 17, 2020 Assessment & Plan (1) Degenerative joint disease of left hip: Status post left anterior total hip arthroplasty POD#2 -Ancef x24 -DVT prophylaxis: SCDs, teds, 81 mg ASA twice daily -Weight-bear as tolerated left lower extremity -PT/OT -Postoperative x-ray demonstrates a well aligned well fixed prosthesis without evidence of fracture or dislocation. -A.m. lab - as above, hgb 10.9 -DC planning - home with POD#1 -Ancef x24 -DVT prophylaxis: SCDs, teds, 81 mg ASA twice daily -Weight-bear as tolerated left lower extremity -PT/OT -Postoperative x-ray demonstrates a well aligned well fixed prosthesis without evidence of fracture or dislocation. -A.m. lab - as above, hgb 9.9 -DC planning - home with Admission and Anticipated Discharge Date Admission Date: May 15, 2020 Subjective Post Operative Progress Note Patient seen sitting up in bed, comfortable, denies complaints, pain well controlled, no acute issues. Denies F/C/N/V/SOB/CP. Review of Systems Review of Systems: All systems reviewed & are unremarkable except as noted in HPI & below Constitutional: as per Subjective / HPI Physical Exam Physical Exam: LLE NVSI +EHL/FHL/TA/GS SILT grossly, +2 DP pulse, compartments soft NT, dressing cdi. Constitutional: WD/WN, vitals as above Results & Data ([facility]) Vital Signs (Past 12 Hours) Vital Signs Temp Pulse Resp BP Pulse Ox 05/17/20 09:09 95 05/17/20 05:40 36.7 C 67 16 155/63 H 92 05/16/20 23:13 36.8 C 73 16 165/52 H 93 Laboratory Results 05/17/20 05/17/20 05/17/20 Range/Units 06:32 06:10 06:10 WBC 11.49 H (4.8-10.8) K/uL RBC 3.58 L (4.2-5.4) M/uL Hgb 10.9 L (12.0-16.0) g/dL Hct 33.6 L (37-47) % MCV 93.9 (80-100) fL MCH 30.4 (25-34) pg MCHC 32.4 (32-36) g/dL RDW Std Deviation 43.1 (36.4-46.3) fL RDW Coeff of Bulmaro 12.6 (11.5-14.5) % Plt Count 322 (130-400) K/uL MPV 9.5 (7.4-10.4) fL Neutrophils % (Manual) 70.6 % Lymphocytes % (Manual) 19.0 % Monocytes % (Manual) 8.6 % Eosinophils % (Manual) 0.9 % Basophils % (Manual) 0.9 % Neutrophils # (Manual) 8.11 H (1.4-6.5) K/uL Total Absolute Neuts 8.11 H (1.4-6.5) K/uL Lymphocytes # (Manual) 2.18 (1.2-3.4) K/uL Total Abs Lymphocytes 2.18 (1.2-3.4) K/uL Monocytes # (Manual) 0.99 H (0.11-0.59) K/uL Eosinophils # (Manual) 0.10 (0-0.5) K/uL Basophils # (Manual) 0.10 (0-0.2) K/uL Sodium 141 (136-145) mmol/L Potassium 4.2 (3.5-5.1) mmol/L Chloride 108 H (98-107) mmol/L Carbon Dioxide 31 (21-32) mmol/L Anion Gap 2.0 L (3-11) BUN 21 H (7-18) mg/dl Creatinine 0.75 (0.6-1.2) mg/dl Est Cr Clr Drug Dosing 50.6 ml/min Est GFR ( Amer) 81.9 Est GFR (Non-Af Amer) 70.7 BUN/Creatinine Ratio 27.4 H (10-20) Glucose 103 H (70-99) mg/dl POC Glucose 103 H (70-99) mg/dl Calcium 8.8 (8.5-10.1) mg/dl 05/16/20 05/16/20 05/16/20 Range/Units 20:40 17:14 12:23 WBC (4.8-10.8) K/uL RBC (4.2-5.4) M/uL Hgb (12.0-16.0) g/dL Hct (37-47) % MCV (80-100) fL MCH (25-34) pg MCHC (32-36) g/dL RDW Std Deviation (36.4-46.3) fL RDW Coeff of Bulmaro (11.5-14.5) % Plt Count (130-400) K/uL MPV (7.4-10.4) fL Neutrophils % (Manual) % Lymphocytes % (Manual) % Monocytes % (Manual) % Eosinophils % (Manual) % Basophils % (Manual) % Neutrophils # (Manual) (1.4-6.5) K/uL Total Absolute Neuts (1.4-6.5) K/uL Lymphocytes # (Manual) (1.2-3.4) K/uL Total Abs Lymphocytes (1.2-3.4) K/uL Monocytes # (Manual) (0.11-0.59) K/uL Eosinophils # (Manual) (0-0.5) K/uL Basophils # (Manual) (0-0.2) K/uL Sodium (136-145) mmol/L Potassium (3.5-5.1) mmol/L Chloride (98-107) mmol/L Carbon Dioxide (21-32) mmol/L Anion Gap (3-11) BUN (7-18) mg/dl Creatinine (0.6-1.2) mg/dl Est Cr Clr Drug Dosing ml/min Est GFR ( Amer) Est GFR (Non-Af Amer) BUN/Creatinine Ratio (10-20) Glucose (70-99) mg/dl POC Glucose 76 125 H 101 H (70-99) mg/dl Calcium (8.5-10.1) mg/dl
--- NOTE | 2020-05-17 22:50 | Discharge Summary ---
Date of Service May 17, 2020 Admission HPI Per Admitting Provider The patient is a 89 year old female who presents with complaints of severe left hip pain and DJD. The patient has failed outpatient conservative treatments to this point which included NSAIDs, IA corticosteroid injection, home exercise/walking program. The patient's pain and limited function have progressed to the point where they severely hinder their activities of daily living and they no longer tolerate exercise programs. They are requesting to proceed with total hip replacement surgery. Principal Diagnosis Left anterior total hip replacement -Left hip DJD Discharge Exam LLE NVSI +EHL/FHL/TA/GS SILT grossly, +2 DP pulse, compartments soft NT, dressing cdi. Constitutional WD/WN, vitals as above Discharge Data Allergies Allergy/AdvReac Type Severity Reaction Status Date / Time atorvastatin AdvReac Unknown MUSCLE Verified 05/15/20 05:45 ACHES morphine AdvReac Unknown Nausea Verified 05/15/20 05:45 Consultations 05/16/20 08:00 Consult Case Management - Discharge Planning Routine Procedures Performed Operation Date: 05/15/20 07:15 Actual Procedures p Left Anterior Total Hip Arthroplasty - Hill Waller DO Ordered Studies 05/15/20 07:15 FL fluoroscopy <1hr Routine FL hip LT 1V Routine Hospital Course (1) Degenerative joint disease of left hip: The patient is a 89 -year-old female who presents with long standing history of severe left hip DJD and failed outpatient conservative treatments. The patient's symptoms have progressed to the point where it has been difficult to perform even normal activities of daily living. I indicated the patient for a left anterior total hip arthroplasty, the risks, benefits and complications of the procedure include but not limited to infection, bleeding, damage to bone, nerves, vessels, surrounding soft tissue, may develop blood clots, loss of function, leg length discrepancy, dislocation, failure of the components, loosening of the components, the need for additional surgery and . The patient wished to proceed with surgery at this time and informed consent was obtained. Hospital Course: On 05/15/20 the patient was taken to the operating room, adequate anesthesia administered and underwent a left anterior total hip arthroplasty. The patient tolerated the procedure well and was taken to the PACU in stable condition. Post-operatively the patient was started on a DVT ppx medication and given appropriate IV antibiotics. Consults were placed to physical therapy, occupational therapy and case management. On POD#1, the patient did well overnight and their pain was well controlled. Labs were drawn and the Hgb was 9.9. The patient progressed well with PT. On POD#2, the patient continued to do well overnight, pain controlled, labs were drawn, hgb 10.9. The patients hospital stay was relatively uneventful and they were deemed stable by the orthopedic team and consultants to be discharged home with on 05/17/20. Discharge Instructions: Upon discharge the patient may weight bear as tolerates through their operative extremity. They were instructed to keep the incision clean and dry at all times. The patient may shower but should not submerge the incision, avoid bathing, pools and hot tubs. The patient was given a script for pain medication and should take as instructed. The patient was given a script for DVT ppx 81mg ASA BID and should take as directed. The patient was instructed to not drive or travel for long distances until cleared to do so. If the patient develops any symptoms of fevers, chills, nausea, vomiting, increased redness, swelling, pain or drainage from the surgical site, they should notify the office and/or proceed to the nearest emergency room. The patient should follow up in 10-14 days after surgery for their routine post-operative follow-up appointment and should call the office to confirm the date and time. Status post left anterior total hip arthroplasty POD#2 -Ancef x24 -DVT prophylaxis: SCDs, teds, 81 mg ASA twice daily -Weight-bear as tolerated left lower extremity -PT/OT -Postoperative x-ray demonstrates a well aligned well fixed prosthesis without evidence of fracture or dislocation. -A.m. lab - as above, hgb 10.9 -DC planning - home with HH POD#1 -Ancef x24 -DVT prophylaxis: SCDs, teds, 81 mg ASA twice daily -Weight-bear as tolerated left lower extremity -PT/OT -Postoperative x-ray demonstrates a well aligned well fixed prosthesis without evidence of fracture or dislocation. -A.m. lab - as above, hgb 9.9 -DC planning - home with HH Total Time Total Time Spent Total Time Spent (In Minutes): 45 Discharge Plan Discharge Items Patient Disposition: Home - Home Health Services Reason For Visit: Unilateral Primary Osteoarthritis Hip Left Discharge Diagnosis: Left anterior total hip replacement -Left hip DJD Condition on Discharge: Good Activity: Per Instructions section Lifting: Wait until after follow-up appointment Bathing: Keep incision dry Bathing Comment: No bathing, pools or hot tubs. Sexual Activity: Wait until after follow-up appointment Exercise/Sports: Wait until after follow-up appointment Driving/Machine Use: No driving Weightbearing: Full weightbearing Non-emergency contact: Primary Care Provider and Surgeon Call non-emergency contact if: you have any medication questions, your symptoms worsen, your pain is not controlled, your pain is worsening, your pain is unusual for you, your pain is concerning for you, you have a fever, your temperature is above 101, your wound has increased redness, your wound has increased drainage and your wound pain has increased Follow-up/Referrals: Desi Zayas MD [Primary Care Provider] - Diet: Carb Consistent or DM2 Addtl Attending Provider Instructions: ACTIVITY RECOMMENDATIONS: SELF CARE INSTRUCTIONS AFTER TOTAL HIP REPLACEMENT : Direct Anterior Approach Until the incision and soft tissues around your hip have healed, there is a possibility that the hip prosthesis could dislocate. A. Hip flexion ( Up & Down out of chair or steps ) may be difficult. This is normal. B. Numbness in front of the thigh is also normal for a few weeks. C. Use hand rails when walking on stairs. D. Wear low heeled shoes with non-slip soles. E. Be sure that your floors are free of things that could trip you - throw rugs, electrical cords, small objects. Avoid wet and waxed floors, especially with crutches and canes. F. Try to walk several times a day with rest periods between. G. Continue with all the exercises taught to you in the hospital. Again, make walking a part of your daily routine. SPECIAL CARE INSTRUCTIONS: VERY IMPORTANT TO READ AND REVIEW A. You may still be at risk for phlebitis and blood clots. 1. Wear surgical stockings (KENDALL hose) for 2 weeks after surgery to improve circulation and reduce swelling. 2. Take Aspirin 81mg twice daily for 4 weeks or as directed by your doctor. This is your blood thinner. 3. High risk patients may be prescribed a stronger blood thinner if necessary. 4. If you are on Coumadin normally, your family doctor/mandarin chinese teacher should monitor your blood work. Expect a phone call the day of or the day after bloodwork is drawn to adjust your dosage. B. You must take antibiotics before having dental work, bladder, bowel and other surgery. Your doctor will provide you with a permanent card to carry describing precautions. C. Call [facility] if you have a fever, redness or swelling around the incision, cloudy drainage from incision, or sudden increase in pain in your hip, not relieved by your regular pain medication. D. Please call the office at if you have any concerns or questions about your operation or recovery. * YOU MAY SHOWER, NO TUB BATHS UNTIL CLEARED BY YOUR DOCTOR. - Keep an extra close eye on the top portion of your incision. Be sure to keep clean & dry. * WEAR KENDALL HOSE 20 HOURS PER DAY FOR 2 WEEKS. * YOU MAY PROGRESS FROM A WALKER, TO A CANE, TO INDEPENDENT AT YOUR OWN PACE. * MOST PATIENTS WILL HAVE HOME NURSING FOR THERAPY. IF YOU DECIDE TO DO OUTPATIENT PHYSICAL THERAPY, PLEASE SCHEDULE THIS 3 TIMES PER WEEK. *Kisha incisional vac is a special dressing covering your incision. This dressing provides a sterile dry environment while you are healing. The dressing is to be left in place for 7 days post-operatively. Your home nurse or surgeon will remove. If you develop any redness or blisters or have any questions notify your surgeon immediately. FOLLOW UP VISIT: If appointment is not already scheduled: Please call [facility] to make a follow-up appointment for 2 weeks after your surgery at . Pending Studies at Discharge: No Stand-Alone Forms: My [facility], Opioid Pain Management, Smoking Cessation Medications and DC Order Prescriptions: New acetaminophen 500 mg Tablet 1,000 mg PO Q8 14 Days Qty: 84 RF: 0 aspirin 81 mg Tablet,Delayed Release (Dr/Ec) 81 mg PO BID 30 Days Qty: 60 RF: 0 celecoxib [Celebrex] 200 mg Capsule 200 mg PO BID 30 Days Qty: 60 RF: 0 polyethylene glycol 3350 [Miralax] 17 gram powder in packet 17 g PO DAILY PRN (Reason: constipation) Qty: 5 RF: 0 oxycodone 5 mg Tablet 5 mg PO Q4H MDD 6 PRN (Reason: pain) Qty: 30 RF: 0 oxycodone 5 mg Tablet 5 mg PO Q6H MDD 4 PRN (Reason: pain) Qty: 30 RF: 0 sennosides [Senokot] 8.6 mg Tablet 17.2 mg PO HS PRN (Reason: constipation) Qty: 28 RF: 0 Continued meclizine 25 mg tablet 25 mg PO .COMPLEX Qty: 270 RF: 1 venlafaxine 75 mg tablet 75 mg PO BID Qty: 180 RF: 3 metformin 500 mg tablet 500 mg PO BID Qty: 180 RF: 3 multivitamin Tablet 1 tab PO QAM RF: 0 pravastatin 40 mg tablet 40 mg PO HS RF: 0 lisinopril 20 mg tablet 20 mg PO QAM RF: 0 levothyroxine 50 mcg tablet 50 mcg PO HS RF: 0 metoprolol succinate 25 mg tablet extended release 24 hr 25 mg PO QAM RF: 0 multivitamin Tablet 1 tab PO BID RF: 0 Probiotic 3 billion cell Capsule 3,000 mmu cells PO QPM RF: 0 Discontinued aspirin 81 mg tablet,delayed release (DR/EC) 81 mg PO QAM RF: 0 acetaminophen [Tylenol Extra Strength] 500 mg Capsule 500 mg PO BID RF: 0 naproxen sodium [Aleve] 220 mg Capsule 220 mg PO BID RF: 0 Discharge Orders: Discharge Order (Routine); Ordered 05/17/20 Ordered By: Jose David Alamo/Other Patient Handouts: Managing Type 2 Diabetes, Preventing Deep Vein Thrombosis Admission Data Admit Date/Time: 05/15/20 09:29 Attending Provider: Hill Waller Admit Provider: Hill Waller Primary Care Provider: Desi Zayas Other Providers: [facility],Home Health Other Interventions: Discharge Summary Assessment (RN) Last Done: 05/17/20 09:36
== END 2020-05-17 12:11 | disposition home health service (06) ==
LOC: 3E 05:18 → ASU 05:18